=== PATIENT | female | born 1995 | race Caucasian/White ===

== ENCOUNTER 2018-11-13 14:52 | Emergency (ER) | payer OTHER ==
[~2018-11-13] VITALS: Ht 154.9 cm; Wt 52.2 kg
[2018-11-13 14:58] VITALS: BP 126/83
== END 2018-11-13 16:10 | disposition home or self-care (01) ==
LOC: ER 14:52
DX: S61.012A Laceration without foreign body of left thumb without damage to nail, initial encounter (principal); W26.0XXA Contact with knife, initial encounter; Y92.89 Other specified places as the place of occurrence of the external cause; Y93.89 Activity, other specified; Y99.8 Other external cause status